=== PATIENT | female | born 1970 | race Caucasian/White ===

== ENCOUNTER → 2016-12-14 | Outpatient (CLI) | payer BC | LOC: CT 12-02 08:30 | DX: M23.231 Derangement of other medial meniscus due to old tear or injury, right knee (principal); Z53.9 Procedure and treatment not carried out, unspecified reason | CPT/HCPCS: Q9963 ==

== ENCOUNTER → 2020-11-08 | Outpatient (CLI) | payer BC | LOC: MAMO 10:53 | DX: Z12.31 Encounter for screening mammogram for malignant neoplasm of breast (principal) | CPT/HCPCS: 77063; 77067 ==